=== PATIENT | female | born 1995 | race Two or more races ===

== ENCOUNTER 2017-11-29 11:31 | Inpatient (IN) | payer BC ==
[~2017-11-29] VITALS: Ht 160 cm; Wt 68.9 kg
[2017-11-29] MEDS ORDERED: LR 1,000 ML IV SCH (12:32)
[2017-11-29] MEDS ORDERED: NALBUPHINE HCL 10 MG/ML AMP IM PRN (12:45)
[2017-11-29] MEDS ORDERED: TERBUTALINE SULFATE 1 MG/ML VIAL SUBCUT ONE (12:45)
[2017-11-29 13:08] LABS: BASOPHILS # (AUTO) 0.1 K/uL (0.0-0.2); BASOPHILS % (AUTO) 0.8 % (0.0-2.0); EOSINOPHILS # (AUTO) 0.1 K/uL (0.0-0.4); EOSINOPHILS % (AUTO) 0.6 % (0.0-4.0); HEMATOCRIT 36.2 % (36-48); HEMOGLOBIN 11.9 g/dL (12.0-16.0); LYMPHOCYTES # (AUTO) 1.8 K/uL (1.0-5.5); LYMPHOCYTES % (AUTO) 19.4 % (20.5-51.5); MEAN CORPUSCULAR HEMOGLOBIN 29 pg (27-31); MEAN CORPUSCULAR HGB CONC 33 % (32-36); MEAN CORPUSCULAR VOLUME 87 fL (79.0-98.0); MONOCYTES # (AUTO) 0.8 K/uL (0.0-1.0); MONOCYTES % (AUTO) 9.2 % (1.7-9.3); NEUTROPHILS # (AUTO) 6.3 K/uL (1.8-7.7); PLATELET COUNT (AUTO) 123 K/uL (130-430); RED BLOOD CELL COUNT(AUTO) 4.15 MIL/uL (4.2-6.2); RED CELL DISTRIBUTION WIDTH 13.9 % (9.0-15.0); WHITE BLOOD COUNT (AUTO) 9.1 K/uL (4.8-10.8)
[2017-11-29 17:35] VITALS: BP_SYST 113
[2017-11-29] MEDS ORDERED: MISOPROSTOL 100 MCG TABLET (CYTOTEC) PO PRN (22:00)
[2017-11-29] MEDS: NALBUPHINE HCL 10 MG/ML AMP IVP PRN (22:37)
[2017-11-30] MEDS: NALBUPHINE HCL 10 MG/ML AMP IVP PRN (00:26)
[2017-11-30] MEDS ORDERED: fentaNYL CITRATE/PF 100 MCG/2 ML AMP ONE ×2 (00:33→01:11)
[2017-11-30] MEDS ORDERED: LR 500 ML IV ONE (01:11)
[2017-11-30] MEDS ORDERED: FENT2mCg/mL-ROPIVA0.2%/NS EPID 150 ML EP SCH (01:15)
[2017-11-30] MEDS ORDERED: ePHEDrine sulfate 50 MG/ML VIAL IVP PRN (01:15)
[2017-11-30] MEDS ORDERED: fentaNYL CITRATE/PF 100 MCG/2 ML AMP IVP ONE ×2 (01:15)
[2017-11-30] MEDS ORDERED: OXYTOCIN/NORMAL SALINE 1,000 ML IV SCH ×2 (03:01→04:36)
[2017-11-30] MEDS ORDERED: OXYTOCIN/NORMAL SALINE 1,000 ML IV ONE (04:36)
[2017-11-30] MEDS ORDERED: SENNOSIDES/DOCUSATE SODIUM 1 TAB TABLET(SENOKOT-S) PO PRN (04:45)
[2017-11-30] MEDS ORDERED: ANUSOL 1 EA SUPP.RECT (PREPARATION H) RC PRN (04:45)
[2017-11-30] MEDS ORDERED: LANOLIN 7 GM OINT. TP PRN (04:45)
[2017-11-30] MEDS ORDERED: METHYLERGONOVINE MALEATE 0.2 MG TABLET PO PRN (04:45)
[2017-11-30] MEDS ORDERED: RHO(D) IMMUNE GLOBULIN/MALTOSE 1500 UNITS/1.3 ML (WINHRO) IM PRN (04:45)
[2017-11-30] MEDS ORDERED: GLYCERIN/WITCH HAZEL (TUCKS PADS) TP PRN (04:45)
[2017-11-30] MEDS ORDERED: DERMOPLAST SPRAY TP PRN (04:45)
[2017-11-30] MEDS ORDERED: HYDROCORTISONE 0.5%, 28.35 GM TOPICAL CREAM TP PRN (04:45)
[2017-11-30] MEDS ORDERED: OXYCODONE/ACETAMINOPHEN 5-325 TABLET PO PRN ×2 (04:45)
[2017-11-30] MEDS ORDERED: DOCUSATE SODIUM 100 MG CAPSULE PO PRN (04:45)
[2017-11-30] MEDS ORDERED: MEASLES,MUMPS&RUBELLA VACC/PF 12500 UNIT/0.5 ML VIAL SUBQ PRN (04:45)
[2017-11-30] MEDS ORDERED: MINERAL OIL 30 ML UDC PO ONE (10:30)
[2017-11-30] MEDS: IBUPROFEN 800 MG TABLET PO PRN ×2 (12:11→18:22)
[2017-11-30] MEDS ORDERED: TEMAZEPAM 15 MG CAPSULE PO PRN (21:00)
[2017-12-01] MEDS: IBUPROFEN 800 MG TABLET PO PRN ×3 (00:17→11:03)
[2017-12-01 07:25] LABS: HEMOGLOBIN 10.6 g/dL (12.0-16.0)
== END 2017-12-01 11:40 | disposition home or self-care (01) | DRG 775 ==
LOC: SPU 11:31 → OBSVTOIN 12:25
PROVIDERS: ADMIT Obstetrics & Gynecology; ATTEND Obstetrics & Gynecology
PROC: 10E0XZZ Delivery of Products of Conception, External Approach (ICD-10-PCS; principal; 2017-11-30)
PROC: 0KQM0ZZ Repair Perineum Muscle, Open Approach (ICD-10-PCS; 2017-11-30)
PROC: 3E0P7VZ Introduction of Hormone into Female Reproductive, Via Natural or Artificial Opening (ICD-10-PCS; 2017-11-30)
PROC: 3E0R3BZ Introduction of Anesthetic Agent into Spinal Canal, Percutaneous Approach (ICD-10-PCS; 2017-11-30)
PROC: 00HU33Z Insertion of Infusion Device into Spinal Canal, Percutaneous Approach (ICD-10-PCS; 2017-11-30)
DX: O69.81X0 Labor and delivery complicated by cord around neck, without compression, not applicable or unspecified (principal); O70.1 Second degree perineal laceration during delivery; Z3A.40 40 weeks gestation of pregnancy; Z37.0 Single live birth
CPT/HCPCS: 36415; 82962; 85018-TC; 85025; 86592; 86886; 86900; 86901; G0378; J2300; J2590; J3010; J7120